=== PATIENT | female | born 1940 | race Caucasian/White ===

== ENCOUNTER 2019-03-15 13:01 | Emergency (ER) | payer MEDICARE, BC ==
[2019-03-15] MEDS ORDERED: Labetalol IV* 5 MG/ML 20 ML VIAL IV PUSH ONE (13:46)
--- NOTE | 2019-03-15 13:59 | ED ---
Hypertension - HPI Summary HPI Summary: 79 year old F [facility] accompanied by daughter complains of hypertension since this morning at 04:00. Symptoms aggravated by nothing. Symptoms alleviated by nothing. She states "I just feel funny." Patient denies chest pain, shortness of breath, blurred vision, weakness in upper and lower extremities. Last night, patient drank a few glasses of wine and ate some birthday cake before going to bed. This morning, patient woke up at 04:00 and her ears were ringing. She went in to the kitchen to take her blood pressure which was 200s so she took her blood pressure medications, losartan and amlodipine. Last week, patient was seen at hospital at [place] for hypertension per daughter. Yesterday, patient's ears were ringing and she had right hand numbness per daughter. - History of Current Complaint Chief Complaint: EDHypertension Stated Complaint: POSS TIA PER DAUGHTER Time Seen by Provider: 03/15/19 13:34 Hx Obtained From: Patient, Family/Agricultural Science Professor - daughter Onset/Duration: Started Hours Ago - 04:00 today, Still Present Timing: Constant Aggravating Factor(s): Nothing Alleviating Factor(s): Nothing Associated Signs & Symptoms: Negative - chest pain, shortness of breath, blurred vision, weakness in upper and lower extremities - Allergies/Home Medications Allergies/Adverse Reactions: Allergies Allergy/AdvReac Type Severity Reaction Status Date / Time Sulfa (Sulfonamide Allergy Nausea And Verified 03/15/19 13:10 Antibiotics) Vomiting Home Medications: Home Medications Amlodipine Besylate [Norvasc] 5 mg PO BID 03/15/19 [History Confirmed 03/15/19] Aspirin EC TAB* [Ecotrin EC Low Dose 81 MG*] 81 mg PO DAILY 03/15/19 [History Confirmed 03/15/19] Losartan/Hydrochlorothiazide [Losartan Potassium/Hydroc 50-12.5 mg] 1 tab PO DAILY 03/15/19 [History Confirmed 03/15/19] Multivitamins/Minerals TAB* [Theragran/minerals TAB*] 1 tab PO DAILY 03/15/19 [ History Confirmed 03/15/19] [place]-3 Fatty Acids (Nf) [Fish Oil (NF)] 2,000 mg PO BID 03/15/19 [History Confirmed 03/15/19] PMH/Surg Hx/FS Hx/Imm Hx Cardiovascular History: Reports: Hx Hypertension Sensory History: Reports: Hx Contacts or Glasses Opthamlomology History: Reports: Hx Contacts or Glasses - Surgical History Surgery Procedure, Year, and Place: hip surgery 2009 Infectious Disease History: No Infectious Disease History: Reports: Traveled Outside the [place] in Last 30 Days - mini - Family History Known Family History: Positive: Hypertension - mother, father - Social History Alcohol Use: Rare Hx Substance Use: No Substance Use Type: Reports: Other - CBD oil once in a while Hx Tobacco Use: Yes Smoking Status (MU): Former Smoker Review of Systems Negative: Blurred Vision Positive: Other - hypertension. Negative: Chest Pain Negative: Shortness Of Breath Negative: Weakness All Other Systems Reviewed And Are Negative: Yes Physical Exam - Summary Physical Exam Summary: VITAL SIGNS: Reviewed. GENERAL: Patient is a well-developed and nourished FEMALE who is lying comfortable in the stretcher. Patient is not in any acute respiratory distress. HEAD AND FACE: No signs of trauma. No ecchymosis, hematomas or skull depressions. No sinus tenderness. EYES: PERRLA, EOMI x 2, No injected conjunctiva, no nystagmus. EARS: Hearing grossly intact. Ear canals and tympanic membranes are within normal limits. MOUTH: Oropharynx within normal limits. NECK: Supple, trachea is midline, no adenopathy, no JVD, no carotid bruit, no c- spine tenderness, neck with full ROM. CHEST: Symmetric, no tenderness at palpation. LUNGS: Clear to auscultation bilaterally. No wheezing or crackles. CVS: Regular rate and rhythm, S1 and S2 present, no murmurs or gallops appreciated. ABDOMEN: Soft, non-tender. No signs of distention. No rebound, no guarding, and no masses palpated. Bowel sounds are normal. EXTREMITIES: FROM in all major joints, no edema, no cyanosis or clubbing. NEURO: Alert and oriented x 3. No acute neurological deficits. Speech is normal and follows commands. SKIN: Dry and warm. Triage Information Reviewed: Yes Vital Signs On Initial Exam: Initial Vitals Temp Pulse Resp BP Pulse Ox 98.7 F 92 16 203/103 98 03/15/19 13:05 03/15/19 13:05 03/15/19 13:05 03/15/19 13:05 03/15/19 13:05 Vital Signs Reviewed: Yes Diagnostics - Vital Signs Vital Signs Temp Pulse Resp BP Pulse Ox 03/15/19 13:05 98.7 F 92 16 203/103 98 - Laboratory Result Diagrams: 03/15/19 14:32 03/15/19 14:29 Lab Statement: Any lab studies that have been ordered have been reviewed, and results considered in the medical decision making process. - Radiology Chest x-ray Radiology Interpretation Completed By: Radiologist Summary of Radiographic Findings: NO ACTIVE CARDIOPULMONARY DISEASE. ED physician has reviewed this report. - EKG 1347 Cardiac Rate: NL - 83 BPM EKG Rhythm: Sinus Rhythm Summary of EKG Findings: Normal sinus rhythm [address] depressions in V4, V5, V6 Re-Evaluation - Re-Evaluation First Eval Re-Evaluation Time: 16:03 Comment: patient is feeling better. she is agreeable to discharge Hypertension Course/Dx - Course Assessment/Plan: 79 year old F presenting to [facility] accompanied by daughter complains of hypertension since this morning at 04:00. Symptoms aggravated by nothing. Symptoms alleviated by nothing. She states "I just feel funny." Patient denies chest pain, shortness of breath, blurred vision, weakness in upper and lower extremities. Last night, the patient drank a few glasses of wine and ate some birthday cake before going to bed. This morning, the patient woke up at 04:00 and her ears were ringing. She went in to the kitchen to take her blood pressure which was 200s so she took her blood pressure medications, losartan and amlodipine. Last week, the patient was seen at the hospital at [place] for hypertension per daughter This weekend, patient had an episode of slurred speech which resolved after 4 minutes per daughter. Yesterday, patient' s ears were ringing and she had right hand numbness per daughter. Initial physical exam showed no acute neurological deficits. NIH score is 0 and GCS is 15. Blood work without a significant abnormality except for glucose of 110 and the troponin 0.00. In the ED course the patient was given labetalol 10 mg IV and the blood pressure now is 127/79. The patient is asymptomatic. Multiple neurological examinations are found to be normal. Therefore, no need for head CT at this time. Therefore the patient will be discharged home with follow-up with primary care physician. Patient is hemodynamically stable alert and active 3 - Diagnoses Provider Diagnoses: Uncontrolled hypertension Discharge - Sign-Out/Discharge Documenting (check all that apply): Patient Departure - Discharge Patient Received Moderate/Deep Sedation with Procedure: No - Discharge Plan Condition: Stable Disposition: HOME Patient Education Materials: Hypertension in the Older Adult (ED) Referrals: [facility] [Outside] - 3 Days Additional Instructions: Follow up with your primary care provider in 3 days. Return to the Emergency Department for new or worsening symptoms. - Billing Disposition and Condition Condition: STABLE Disposition: Home - Attestation Statements Document Initiated by Scribe: Yes Documenting Scribe: Mirlande Sanchez Provider For Whom Wally is Documenting (Include Credential): Lee Guerra MD Scribe Attestation: IMirlande, scribed for Lee Guerra MD on 03/15/19 at 1852. Scribe Documentation Reviewed: Yes Provider Attestation: The documentation as recorded by the Mirlande guerrero accurately reflects the service I personally performed and the decisions made by me, Lee Guerra MD Status of Scribe Document: Viewed
[2019-03-15 14:46] LABS: ABS Basophils 0.1 10^3/ul (0-0.2); ABS Lymphocytes 1.7 10^3/ul (1.0-4.8); ABS Monocytes 0.5 10^3/ul (0-0.8); Eosinophil % 0.7 %; Hematocrit 45 % (35-47); Hemoglobin 15.2 g/dL (12.0-16.0); Lymphocyte % 22.8 %; Mean Corpuscular HGB Conc 34 g/dL (31-36); Mean Corpuscular Hemoglobin 31 pg (27-31); Mean Corpuscular Volume 93 fL (80-97); Mean Platelet Volume 9.3 fL (7.4-10.4); Nucleated Red Blood Cells % 0.1; Platelet Count 217 10^3/uL (150-450); Red Blood Count 4.86 10^6 /uL (3.70-4.87); Red Cell Distribution Width 14 % (10-15); White Blood Count 7.3 10^3/uL (3.5-10.8)
[2019-03-15 15:05] LABS: Albumin/Globulin Ratio 1.2 (1-3); BUN/Creatinine Ratio 22.7 (8-20); Calcium 9.6 mg/dL (8.6-10.3); Globulin 3.3 g/dL (2-4); Potassium 3.9 mmol/L (3.5-5.0); Total Bilirubin 0.5 mg/dL (0.2-1.0); Total Protein 7.3 g/dL (6.4-8.9)
== END 2019-03-15 16:20 | disposition home or self-care (01) ==
LOC: ED 13:01
DX: I10 Essential (primary) hypertension (principal); Z88.2 Allergy status to sulfonamides; Z79.82 Long term (current) use of aspirin; Z79.899 Other long term (current) drug therapy; Z87.891 Personal history of nicotine dependence
CPT/HCPCS: 36415; 71045; 80053; 84484; 85025; 93005; 96374; 99283